=== PATIENT | female | born 1935 | race Asian ===

== ENCOUNTER 2018-07-05 08:29 | Day surgery (SDC) | payer OTHER ==
[2018-07-04 11:38] VITALS: BMI 24.0
[~2018-07-05 08:29] MED LIST: ACETAMINOPHEN 325 MG TABLET (FP) PO PRN; LIDOCAINE HCL/PF 2% SDV 5ML VIAL INF ONE
[2018-07-05] MEDS ORDERED: OFLOXACIN 0.3% OPHTHALMIC SOLUTION 5 ML BOTTLE ONE (08:37)
[2018-07-05] MEDS ORDERED: KETOROLAC TROMETHAMINE 0.5% EYE DROP 1 DROP DROPS ONE (08:38)
[2018-07-05] MEDS ORDERED: CYCLOPENTOLATE HCL 1% OPHTH SOLN 2 ML BOTTLE ONE (08:38)
[2018-07-05] MEDS ORDERED: TROPICAMIDE 1% OPHTH SOLN 15 ML BOTTLE ONE (08:38)
[2018-07-05] MEDS ORDERED: PHENYLEPHRINE 2.5% OPHTH SOLN 15 ML BOTTLE ONE (08:38)
[2018-07-05] MEDS: CYCLOPENTOLATE HCL 1% OPHTH SOLN 2 ML BOTTLE OP SCH ×3 (08:45→09:00)
[2018-07-05] MEDS: PHENYLEPHRINE 2.5% OPHTH SOLN 15 ML BOTTLE OP SCH ×3 (08:45→09:00)
[2018-07-05] MEDS: TROPICAMIDE 1% OPHTH SOLN 15 ML BOTTLE OP SCH ×3 (08:45→09:00)
[2018-07-05] MEDS: KETOROLAC TROMETHAMINE 0.5% EYE DROP 1 DROP DROPS OP SCH ×3 (08:45→09:00)
[2018-07-05] MEDS: OFLOXACIN 0.3% OPHTHALMIC SOLUTION 5 ML BOTTLE OP SCH ×3 (08:45→09:00)
[2018-07-05] MEDS ORDERED: PROPOFOL 20 ML ONE (10:10)
[2018-07-05] MEDS ORDERED: BUPIVACAINE HCL/PF 0.75% 10 ML VIAL NR ONE (10:16)
[2018-07-05] MEDS ORDERED: LIDOCAINE HCL/PF 2% SDV 5ML VIAL INF ONE (10:16)
[2018-07-05] MEDS ORDERED: POVIDONE-IODINE 5% OPHTHALMIC PREP 30 ML SOLUTION OD ONE (10:22)
[2018-07-05] MEDS ORDERED: LIDOCAINE HCL 1% PRESERVATIVE FREE - 30ML VIAL IO ONE (10:29)
[2018-07-05] MEDS ORDERED: CHONDROITIN SU A/HYALUR SOD 1 KIT IO ONE (10:29)
[2018-07-05] MEDS ORDERED: TRYPAN BLUE 0.5 ML DISP.SYRIN IO ONE (10:29)
[2018-07-05] MEDS ORDERED: BSS (NA/CA/MG/K) BALANCED SALT SOLUTION OPHTH SOLN 15 ML BOTTLE OD ONE ×2 (10:29)
[2018-07-05] MEDS ORDERED: HYALURONATE SODIUM 14 MG/ML DISP.SYRIN IO ONE (10:33)
[2018-07-05] MEDS ORDERED: MANNITOL 25% 12.5 GM/50 ML VIAL IVPB ONE (10:40)
[2018-07-05] MEDS ORDERED: EPINEPHrine/PF 1 MG/1 ML (1:1,000) AMPULE SQ ONE (10:40)
[2018-07-05] MEDS ORDERED: hydrALAZINE HCL 20 MG/ML VIAL ONE (11:55)
[2018-07-05] MEDS ORDERED: ONDANSETRON 4 MG/2 ML VIAL IVPUSH PRN (12:04)
[2018-07-05] MEDS ORDERED: hydrALAZINE HCL 20 MG/ML VIAL IVPUSH ONE (12:04)
--- NOTE | 2018-07-05 12:14 | OP ---
DATE OF OPERATION: 07/05/2018 PREOPERATIVE DIAGNOSIS: Mature cataract, right eye. POSTOPERATIVE DIAGNOSIS: Mature cataract, right eye. PROCEDURE: Phacoemulsification of right cataract with capsular staining Trypan blue infiltration and posterior chamber intraocular lens implantation. Lens used SN60WF 24.5 Diopter power, Serial No. [id number]. SURGEON: Filemon Mccollum MD ANESTHESIA: Peribulbar/modified van Lint/MAC. COMPLICATIONS: None. PROCEDURE: The patient was brought to the operating room and correctly identified along with the operative site as well as correct intraocular lens montalvo. She was then given a peribulbar block under sedation with 5 mL of 1:1 mixture of 2% lidocaine and 0.75% ropivacaine. Two mL of the same mixture was given as a modified van Lint eyelid block. The eye was then prepped and draped in a sterile fashion including 5% Betadine solution in the conjunctival sac and an eyelid drape. An eyelid speculum was then placed into the right eye. The cataract was inspected and a completely white cataract was noted with no red reflex. A paracentesis port was created. Intracameral lidocaine was injected approximately 0.5 mL 1% preservative free. The capsule was then stained with Trypan blue and 0.5 mL of the preservative-free lidocaine 1% was then used to irrigate the Trypan blue from the eye. Viscoelastic was injected to inflate the anterior chamber and a temporal clear nuclear wound was created. As the capsulorrhexis wasto be initiated with a cystotome, there was some trampolining of the anterior capsule noted without puncturing it. The decision was then made to pause and have the patient receive Mannitol 12.5 g intravenously. After the Mannitol was finished, the capsulorrhexis was initiated with the cystotome completed successfully. The nucleus was then hydro-dissected with BSS and then removed with phacoemulsification. The cataract was noted to be dense and most of the phacoemulsification was taking place within the capsular bag/iris plane. The remaining cortical material was then irrigated and aspirated from the eye. Viscoelastic was injected to inflate the capsular bag. The [id number] lens was then injected into the capsular bag. A Viscoelastic was then irrigated and aspirated from the eye. The wounds were tested and the superior paracentesis port was noted to be dry; however, there was some mild leaking in the temporal clear corneal wound. The decision was then made to place a single 10-0 nylon suture in the temporal clear corneal wound. The wound was again tested and found to be watertight. The intraocular lens was noted to be well centered and covered with the anterior capsular border. Topical vancomycin given as well as a drop of Betadine and eye patched and shielded and the patient was discharged from the operating room in stable condition. FILEMON MCCOLLUM M.D. [id number] MTDAddison
[2018-07-05 13:52] VITALS: BP 143/63; PULSE 88; TEMP 97.9
== END 2018-07-05 13:45 | disposition home or self-care (01) ==
LOC: JASU-SURG 08:29
PROVIDERS: ATTEND Ophthalmology
PROC: 08RJ3JZ Replacement of Right Lens with Synthetic Substitute, Percutaneous Approach (ICD-10-PCS; principal; 2018-07-05 10:00)
DX: H25.9 Unspecified age-related cataract (principal)
CPT/HCPCS: 94760

== ENCOUNTER 2018-07-26 08:45 | Day surgery (SDC) | payer OTHER ==
[2018-07-25 11:16] VITALS: BMI 23.2
[~2018-07-26 08:45] MED LIST changes: +BUPIVACAINE HCL/PF 0.75% 10 ML VIAL NR ONE; +CYCLOPENTOLATE HCL 1% OPHTH SOLN 2 ML BOTTLE OP SCH; +KETOROLAC TROMETHAMINE 0.5% EYE DROP 1 DROP DROPS OP SCH; +OFLOXACIN 0.3% OPHTHALMIC SOLUTION 5 ML BOTTLE OP SCH; +PHENYLEPHRINE 2.5% OPHTH SOLN 15 ML BOTTLE OP SCH; +POVIDONE-IODINE 5% OPHTHALMIC PREP 30 ML SOLUTION OS ONE; +TROPICAMIDE 1% OPHTH SOLN 15 ML BOTTLE OP SCH
[2018-07-26] MEDS ORDERED: CYCLOPENTOLATE HCL 1% OPHTH SOLN 2 ML BOTTLE ONE (09:02)
[2018-07-26] MEDS ORDERED: OFLOXACIN 0.3% OPHTHALMIC SOLUTION 5 ML BOTTLE ONE (09:02)
[2018-07-26] MEDS ORDERED: PHENYLEPHRINE 2.5% OPHTH SOLN 15 ML BOTTLE ONE (09:02)
[2018-07-26] MEDS ORDERED: TROPICAMIDE 1% OPHTH SOLN 15 ML BOTTLE ONE (09:03)
[2018-07-26] MEDS ORDERED: KETOROLAC TROMETHAMINE 0.5% EYE DROP 1 DROP DROPS ONE (09:03)
[2018-07-26] MEDS ORDERED: PROPOFOL 20 ML ONE ×2 (09:27)
[2018-07-26] MEDS ORDERED: OFLOXACIN 0.3% OPHTHALMIC SOLUTION 5 ML BOTTLE OP ONE ×3 (09:40→09:50)
[2018-07-26] MEDS ORDERED: TROPICAMIDE 1% OPHTH SOLN 15 ML BOTTLE OP ONE ×2 (09:40→09:45)
[2018-07-26] MEDS ORDERED: PHENYLEPHRINE 2.5% OPHTH SOLN 15 ML BOTTLE OP ONE ×3 (09:40→09:50)
[2018-07-26] MEDS ORDERED: KETOROLAC TROMETHAMINE 0.5% EYE DROP 1 DROP DROPS OP ONE ×2 (09:45→09:50)
[2018-07-26] MEDS ORDERED: CYCLOPENTOLATE 2% OPHTH SOLN 2 ML BOTTLE OP ONE ×2 (09:45→09:50)
[2018-07-26] MEDS ORDERED: TROPICAMIDE 0.5% OPHTHALMIC SOLN 15 ML BOTTLE OS ONE (09:50)
[2018-07-26] MEDS ORDERED: MANNITOL 25% 12.5 GM/50 ML VIAL IVPB ONE (10:02)
[2018-07-26] MEDS ORDERED: ONDANSETRON 4 MG/2 ML VIAL IVPUSH PRN (10:03)
[2018-07-26] MEDS ORDERED: LIDOCAINE HCL/PF 2% SDV 5ML VIAL INF ONE (10:05)
[2018-07-26] MEDS ORDERED: BUPIVACAINE HCL/PF 0.75% 10 ML VIAL NR ONE (10:05)
[2018-07-26] MEDS ORDERED: POVIDONE-IODINE 5% OPHTHALMIC PREP 30 ML SOLUTION OS ONE (10:10)
[2018-07-26] MEDS ORDERED: MINERAL OIL/PETROLATUM,WHITE 3.5 GM TUBE ONE (10:12)
[2018-07-26] MEDS ORDERED: MIDAZOLAM HCL 2 MG/2 ML SINGLE DOSE VIAL ONE (10:12)
[2018-07-26] MEDS ORDERED: LACTATED RINGERS SOLUTION 1,000 ML IV SCH (10:15)
[2018-07-26] MEDS ORDERED: TRYPAN BLUE 0.5 ML DISP.SYRIN IO ONE (10:18)
[2018-07-26] MEDS ORDERED: BSS (NA/CA/MG/K) BALANCED SALT SOLUTION OPHTH SOLN 15 ML BOTTLE OS ONE (10:18)
[2018-07-26] MEDS ORDERED: LIDOCAINE HCL 1% PRESERVATIVE FREE - 30ML VIAL IO ONE (10:18)
[2018-07-26] MEDS ORDERED: CHONDROITIN SU A/HYALUR SOD 1 KIT IO ONE (10:18)
[2018-07-26] MEDS ORDERED: EPINEPHrine/PF 1 MG/1 ML (1:1,000) AMPULE SQ ONE (10:25)
[2018-07-26 11:34] VITALS: BP 154/78; PULSE 71; TEMP 97.7
--- NOTE | 2018-07-26 12:37 | OP ---
DATE OF OPERATION: 07/26/2018 PREOPERATIVE DIAGNOSIS: Cataract, left eye. ASSOCIATE DIAGNOSIS: Narrow angle glaucoma. POSTOPERATIVE DIAGNOSIS: Mature cataract, right eye. PROCEDURE: Phacoemulsification of left cataract with capsular staining Trypan blue infiltration and posterior chamber intraocular lens implantation. The lens used SN60WF 24.0 Diopter power, Serial No. [id number]. SURGEON: Filemon Mccollum MD ANESTHESIA: Peribulbar/modified van Lint/MAC. COMPLICATIONS: None. PROCEDURE: The patient was brought to the operating room and correctly identified along with the intraocular lenses and correct ocular site. She was then given a peribulbar block under sedation with 5 mL of 1:1 mixture of 2% lidocaine and 0.75% ropivacaine. Two mL of the same mixture was given as a modified van Lint eyelid block. The eye was then prepped and draped in a sterile fashion including 5% Betadine solution in the conjunctival sac and an eyelid drape. An eyelid speculum was then placed into the left eye. A poor red reflex was noted. A paracentesis port was created and 0.5 mL of 1% preservative free lidocaine was given intracameral. An air bubble was then placed and beneath the air bubble the capsule was stained with Trypan blue. Then 0.5 mL of the preservative-free lidocaine was then given to flush out the Trypan blue. Viscoelastic was injected to inflate the anterior chamber and a temporal clear corneal wound was created. A continuous circular capsulorrhexis was performed. The nucleus was then hydro-dissected and removed with phacoemulsification using the ____ approach. The lens was noted to be dense but most of the removal was taking place within the capsular plane. The remaining cortical material was then irrigated and aspirated from the eye and then Viscoelastic was injected to inflate the capsular bag. The lens was then injected into the capsular bag. Viscoelastic was then irrigated and aspirated from the eye. All wounds were tested and found to be watertight. No suture was placed. The intraocular lens was noted to be well centered and covered by the anterior capsular border. Topical vancomycin and a drop of Betadine were given, the eye patched and shielded, and the patient was discharged from the operating room in stable condition. FILEMON MCCOLLUM M.D. [id number]
== END 2018-07-26 11:40 | disposition home or self-care (01) ==
LOC: JASU-SURG 08:45
PROVIDERS: ATTEND Ophthalmology
PROC: 08RK3JZ Replacement of Left Lens with Synthetic Substitute, Percutaneous Approach (ICD-10-PCS; principal; 2018-07-26 10:00)
DX: H25.89 Other age-related cataract (principal); H40.20X0 Unspecified primary angle-closure glaucoma, stage unspecified